=== PATIENT | male | born 1970 | race American Indian/Alaskan Native ===

== ENCOUNTER 2016-04-06 08:06 | Emergency (ER) | payer SELFPAY ==
[2016-04-06 08:55] LABS: Basophils % (Auto) 1.1 % (0.0-1.8); Eosinophils % (Auto) 3.9 % (0.0-4.3); Hematocrit 44.7 % (35.5-45.6); Hemoglobin 14.3 gm/dl (11.8-15.2); Mean Corpuscular HGB Conc 32 % (32-34); Mean Corpuscular Hemoglobin 27 pg (28-32); Mean Corpuscular Volume 85 fl (84-94); Platelet Count 235 K/mm3 (140-440); Red Blood Count 5.26 M/mm3 (3.65-5.03); Red Cell Distribution Width 13.1 % (13.2-15.2); White Blood Count 7.7 K/mm3 (4.5-11.0)
[2016-04-06 09:12] LABS: Anion Gap 20 mmol/L; Blood Urea Nitrogen 15 mg/dL (9-20); Calcium 9.2 mg/dL (8.4-10.2); Carbon Dioxide 22 mmol/L (22-30); Chloride 100.5 mmol/L (98-107); Glucose 147 mg/dL (75-100); Potassium 4.1 mmol/L (3.6-5.0); Sodium 138 mmol/L (137-145)
[2016-04-06] MEDS ORDERED: TORADOL ONE (13:08)
[2016-04-06] MEDS ORDERED: TORADOL IV ONE (13:09)
[2016-04-06] MEDS ORDERED: NACL ONE ×2 (13:39→13:43)
--- NOTE | 2016-04-06 13:50 | Emergency Department Report ---
ED Chest Pain HPI - General Chief Complaint: Chest Pain Stated Complaint: CHEST PAIN Time Seen by Provider: 04/06/16 13:02 Source: patient Mode of arrival: Ambulatory Limitations: No Limitations - History of Present Illness Initial Comments: 46 year male with a past medical history of lymphoma (currently in remission since September 2014 and previous (and obesity presents to the hospital complains of left-sided chest pain since last night. Pain is constant, rated 9/10 in intensity, sharp, worse palpation and deep inspiration. Mild shortness of breath noted this morning. Mild nausea reported. No reports of vomiting, calf tenderness, or recent travel. Denies family history of CAD, tobacco use, hypertension, or elevated cholesterol. Had a stress test performed here several years ago (not currently in Doctor kinetic record). Patient states he has been performing some heavy lifting and states he has been lifting his . PMD : none Severity scale (0 -10): 5 - Related Data Previous Rx's Medication Instructions Recorded Last Taken Type Ibuprofen [Motrin] 800 mg PO Q8HR PRN #30 tablet 04/06/16 Unknown Rx traMADol [Ultram 50 MG tab] 50 mg PO Q6HR PRN #20 tablet 04/06/16 Unknown Rx Allergies Allergy/AdvReac Type Severity Reaction Status Date / Time No Known Allergies Allergy Verified 04/06/16 08:20 MATEO score - Mateo Score Age > 65: (0) No Aspirin use within the Past 7 Days: (0) No 3 or more CAD Risk Factors: (0) No 2 or more Angina events in past 24 hrs: (0) No Known CAD with more than 50% Stenosis: (0) No Elevated Cardiac Markers: (0) No ST Deviation Greater than 0.5mm: (0) No MATEO Score: 0 ED Review of Systems ROS: Stated complaint: CHEST PAIN Other details as noted in HPI Comment: All other systems reviewed and negative Other: Constitutional: No fevers chills Eyes: No eye pain visual changes ENT: No ear pain or throat pain Neck: Denies pain Respiratory: Denies cough wheezing Cardiovascular: as per hpi GI: Denies abdominal pain, nausea, vomiting, diarrhea : Denies dysuria Musculoskeletal: Denies back pain Skin: Denies rash, lesions, erythema Neurologic: Denies headache, numbness, weakness Psychiatric: Denies suicidal ideation, hallucinations ED Past Medical Hx - Past Medical History Hx of Cancer: Yes (LYMPHOMA) Additional medical history: OBESITY - Surgical History Additional Surgical History: Port to Left Chest - Social History Smoking Status: Never Smoker Substance Use Type: None - Medications Home Medications: Home Medications Medication Instructions Recorded Confirmed Last Taken Type Ibuprofen [Motrin] 800 mg PO Q8HR PRN #30 tablet 04/06/16 Unknown Rx traMADol [Ultram 50 MG tab] 50 mg PO Q6HR PRN #20 tablet 04/06/16 Unknown Rx ED Physical Exam - General Limitations: No Limitations - Other Other exam information: General: No limitations, patient is alert in no acute distress Head exam: Atraumatic, normocephalic Eyes exam: Normal appearance, pupils equal reactive to light, extraocular movements intact ENT: Moist mucous membrane, normal oropharynx Neck exam: Normal inspection, full range of motion, no meningismus nontender Respiratory exam: Clear to auscultation bilateral, no wheezes, rales, crackles. Reproducible anterior left lower chest wall tenderness Cardiovascular: Normal rate and rhythm, normal heart sounds Abdomen: Soft, nondistended, and nontender, with normal bowel sounds, no rebound, or guarding Extremity: Full range of motion normal inspection no deformity, no calf tenderness or edema Back: Normal Inspection, full range of motion, no tenderness Neurologic: Alert, oriented x3, cranial nerves intact, no motor or sensory deficit Psychiatric: normal affect, normal mood Skin: Warm, dry, intact ED Course Vital Signs 04/06/16 04/06/16 04/06/16 08:16 11:45 13:16 Temperature 98.2 F 98.7 F Pulse Rate 82 65 Respiratory 18 18 16 Rate Blood Pressure 160/98 Blood Pressure 140/96 [Left] O2 Sat by Pulse 99 98 99 Oximetry 04/06/16 04/06/16 13:19 14:11 Temperature 98.4 F Pulse Rate 61 74 Respiratory 16 20 Rate Blood Pressure Blood Pressure 145/90 152/72 [Left] O2 Sat by Pulse 99 98 Oximetry - Reevaluation(s) Reevaluation #1: 04/06/16 14:47 Patient received Toradol for pain with some relief. He grimaces when I palpate his left chest wall therefore he was provided [place] for additional pain relief. Patient is not in any acute distress and pleasant in the ED. ED Medical Decision Making - Lab Data Result diagrams: 04/06/16 08:25 04/06/16 08:25 Lab Results 04/06/16 04/06/16 04/06/16 Range/Units 08:25 08:25 11:20 WBC 7.7 (4.5-11.0) K/mm3 RBC 5.26 H (3.65-5.03) M/mm3 Hgb 14.3 (11.8-15.2) gm/dl Hct 44.7 (35.5-45.6) % MCV 85 (84-94) fl MCH 27 L (28-32) pg MCHC 32 (32-34) % RDW 13.1 L (13.2-15.2) % Plt Count 235 (140-440) K/mm3 Lymph % (Auto) 29.2 (13.4-35.0) % [place] % (Auto) 10.7 H (0.0-7.3) % Eos % (Auto) 3.9 (0.0-4.3) % Baso % (Auto) 1.1 (0.0-1.8) % Lymph # 2.3 (1.2-5.4) K/mm3 [place] # 0.8 (0.0-0.8) K/mm3 Eos # 0.3 (0.0-0.4) K/mm3 Baso # 0.1 (0.0-0.1) K/mm3 Seg Neutrophils % 55.1 (40.0-70.0) % Seg Neutrophils # 4.2 (1.8-7.7) K/mm3 Sodium 138 (137-145) mmol/L Potassium 4.1 (3.6-5.0) mmol/L Chloride 100.5 (98-107) mmol/L Carbon Dioxide 22 (22-30) mmol/L Anion Gap 20 mmol/L BUN 15 (9-20) mg/dL Creatinine 1.0 (0.8-1.5) mg/dL Estimated GFR > 60 ml/min BUN/Creatinine Ratio 15.00 % Glucose 147 H (75-100) mg/dL Calcium 9.2 (8.4-10.2) mg/dL Troponin T < 0.010 < 0.010 (0.00-0.029) ng/mL - EKG Data -: EKG Interpreted by Me (sinus rate 72 nonspecific T-wave abnormalities) - EKG Data When compared to previous EKG there are: previous EKG unavailable - Radiology Data Radiology results: report reviewed ct angio chest: unremarkable, no PE - Medical Decision Making Pt has atypical reproducible chest wall pain. He does have a high risk for DVT/ PE given obesity and history of lymphoma but lacks DVT symptoms on exam, tachycardia, tachypnea, or hypoxia. CT angiogram was also negative. Patient does not have signs of ST elevation [place], chest pain is atypical, and has 2 negative sets of cardiac enzymes for constant sharp chest pain. Patient will be treated symptomatically for chest wall pain and encouraged follow-up. - Differential Diagnosis [place], PE, costochondritis, chest wall strain Critical Care Time: No Critical care attestation.: If time is entered above; I have spent that time in minutes in the direct care of this critically ill patient, excluding procedure time. ED Disposition Clinical Impression: Chest wall pain Disposition: DISCHARGED TO HOME OR SELFCARE Is pt being admited?: No Does the pt Need Aspirin: No Condition: Stable Instructions: Chest Pain (ED) Additional Instructions: Take the medication as needed. Return if symptoms worsen Prescriptions: Ibuprofen [Motrin] 800 mg PO Q8HR PRN #30 tablet PRN Reason: Pain traMADol [Ultram 50 MG tab] 50 mg PO Q6HR PRN #20 tablet PRN Reason: Pain Referrals: PRIMARY CARE, [Primary Care Provider] - 3-5 Days AARTI GARDINER MD [Staff Physician] - 3-5 Days Forms: Work/School Release Form(ED) Time of Disposition: 14:48
[2016-04-06 14:11] VITALS: BP 152/72
--- NOTE | 2016-04-06 14:13 | Cat Scan Report ---
CTA CHEST: History: Left chest pain. Technique: Helical CT following IV contrast. Pulmonary embolus protocol. Sagittal and coronal reformatted images. Rotational MIP images. Findings: Contrast bolus is satisfactory. No pulmonary embolus is identified. The thyroid gland, tracheobronchial tree, esophagus, heart, pericardium, mediastinal vessels, lung naranjo and bony thorax are unremarkable. Impression: No evidence for pulmonary embolus. Unremarkable CT chest with contrast.
[2016-04-06] MEDS ORDERED: NORCO 5/325 PO ONE (14:47)
== END 2016-04-06 16:05 | disposition home or self-care (01) ==
LOC: ED 08:06
DX: R07.89 Other chest pain (principal)
CPT/HCPCS: 36415; 71275; 80048; 84484; 85025; 93005; 93010; 96374; 99285; J1885; Q9967

== ENCOUNTER 2016-06-11 08:37 | Emergency (ER) | payer SELFPAY ==
[2016-06-11 09:45] VITALS: BP 132/84
--- NOTE | 2016-06-11 11:26 | Emergency Department Report ---
ED Lower Extremity HPI - General Chief Complaint: Extremity Injury, Lower Stated Complaint: LT ANKLE INJURY Time Seen by Provider: 06/11/16 11:22 Source: patient Mode of arrival: Ambulatory Limitations: Other - History of Present Illness Initial Comments: He states he stepped on uneven surface last night rolling his left ankle and feeling a pop. This is an isolated injury. MD Complaint: ankle injury, foot injury -: Sudden, days(s) (yesterday) Injury: Ankle: Left, Foot: Left Type of Injury: eversion Severity scale (0 -10): 8 Worsens With: weight bearing, movement, palpation - Related Data Previous Rx's Medication Instructions Recorded Last Taken Type Ibuprofen [Motrin] 800 mg PO Q8HR PRN #30 tablet 04/06/16 Unknown Rx traMADol [Ultram 50 MG tab] 50 mg PO Q6HR PRN #20 tablet 04/06/16 Unknown Rx Ibuprofen [Motrin] 800 mg PO Q8HR PRN #15 tablet 06/11/16 Unknown Rx traMADol [Ultram 50 MG tab] 50 mg PO Q4HR PRN #15 tablet 06/11/16 Unknown Rx Allergies Allergy/AdvReac Type Severity Reaction Status Date / Time No Known Allergies Allergy Verified 04/06/16 08:20 ED Review of Systems ROS: Stated complaint: LT ANKLE INJURY Other details as noted in HPI ED Past Medical Hx - Past Medical History Additional medical history: OBESITY - Surgical History Additional Surgical History: Port to Left Chest - Social History Smoking Status: Never Smoker Substance Use Type: None - Medications Home Medications: Home Medications Medication Instructions Recorded Confirmed Last Taken Type Ibuprofen [Motrin] 800 mg PO Q8HR PRN #30 tablet 04/06/16 Unknown Rx traMADol [Ultram 50 MG tab] 50 mg PO Q6HR PRN #20 tablet 04/06/16 Unknown Rx Ibuprofen [Motrin] 800 mg PO Q8HR PRN #15 tablet 06/11/16 Unknown Rx traMADol [Ultram 50 MG tab] 50 mg PO Q4HR PRN #15 tablet 06/11/16 Unknown Rx ED Physical Exam - General Limitations: Other General appearance: alert, in no apparent distress - Head Head exam: Present: atraumatic, normocephalic - Eye Eye exam: Present: normal appearance - ENT ENT exam: Present: mucous membranes moist - Neck Neck exam: Present: normal inspection - Respiratory Respiratory exam: Present: normal lung sounds bilaterally. Absent: respiratory distress - Cardiovascular Cardiovascular Exam: Present: regular rate. Absent: systolic murmur, diastolic murmur, rubs, gallop - GI/Abdominal GI/Abdominal exam: Present: soft, normal bowel sounds - Extremities Exam Extremities exam: Present: normal inspection - Expanded Lower Extremity Exam Left Ankle exam: Present: tenderness, swelling, ecchymosis Foot/Toe exam: Present: tenderness, swelling, laceration Neuro vascular tendon exam: Present: no vascular compromise. Absent: pulse deficit, abnormal cap refill, extremity cold to touch Gait: Positive: unable to bear weight - Back Exam Back exam: Present: normal inspection - Neurological Exam Neurological exam: Present: alert, oriented X3 - Psychiatric Psychiatric exam: Present: normal affect, normal mood - Skin Skin exam: Present: warm, dry, intact, normal color. Absent: rash ED Course Vital Signs 06/11/16 09:42 Temperature 98.4 F Pulse Rate 78 Respiratory 16 Rate Blood Pressure 132/84 O2 Sat by Pulse 100 Oximetry Critical care attestation.: If time is entered above; I have spent that time in minutes in the direct care of this critically ill patient, excluding procedure time. ED Disposition Clinical Impression: Ankle sprain Disposition: DISCHARGED TO HOME OR SELFCARE Is pt being admited?: No Condition: Good Instructions: Ankle Sprain (ED), Ankle Stirrup Splint (ED) Prescriptions: Ibuprofen [Motrin] 800 mg PO Q8HR PRN #15 tablet PRN Reason: Pain traMADol [Ultram 50 MG tab] 50 mg PO Q4HR PRN #15 tablet PRN Reason: Pain Referrals: PRIMARY MD SHARDA [Primary Care Provider] - 3-5 Days ALYSSA MUSE MD [Staff Physician] - 3-5 Days
[2016-06-11] MEDS ORDERED: NORCO 5/325 PO ONE (11:39)
--- NOTE | 2016-06-11 12:05 | XRay Report ---
LEFT ANKLE, 3 views: History: Injury. Bone mineralization is normal. No acute osseous abnormality or joint pathology is identified. There is moderate lateral soft tissue swelling. IMPRESSION: Soft tissue swelling.
--- NOTE | 2016-06-11 12:06 | XRay Report ---
LEFT FOOT, 3 views: History: Injury. The bony architecture is intact. Bony alignment is normal. No soft tissue abnormalities are seen. The joint spaces appear preserved. Mild hallux valgus deformity is noted. IMPRESSION: No acute osseous injury is detected. Hallux valgus deformity.
== END 2016-06-11 12:51 | disposition home or self-care (01) ==
LOC: ED 08:37
DX: S93.492A Sprain of other ligament of left ankle, initial encounter (principal); X50.1XXA Overexertion from prolonged static or awkward postures, initial encounter; X50.9XXA Other and unspecified overexertion or strenuous movements or postures, initial encounter; Y93.89 Activity, other specified; Y92.89 Other specified places as the place of occurrence of the external cause; Y99.8 Other external cause status

== ENCOUNTER 2021-06-24 14:51 | Emergency (ER) | payer OTHER ==
--- NOTE | 2021-06-24 15:19 | Emergency Department Report ---
ED Chest Pain HPI - General Chief Complaint: Chest Pain Stated Complaint: CHEST PAIN/RT SHOULDER Time Seen by Provider: 06/24/21 15:18 Source: patient Mode of arrival: Ambulatory Limitations: No Limitations - History of Present Illness Initial Comments: Patient is a 51-year-old male who presents with chest pain the chest pain is moderate he states it occurred for about a week he has pain when you press on his chest. Patient has no nausea no vomiting and no shortness of breath. Severity scale (0 -10): 9 - Related Data Previous Rx's Medication Instructions Recorded Last Taken Type Ibuprofen [Motrin] 800 mg PO Q8HR PRN #30 tablet 04/06/16 Unknown Rx traMADoL [Ultram 50 MG tab] 50 mg PO Q6HR PRN #20 tablet 04/06/16 Unknown Rx Ibuprofen [Motrin] 800 mg PO Q8HR PRN #15 tablet 06/11/16 Unknown Rx traMADoL [Ultram 50 MG tab] 50 mg PO Q4HR PRN #15 tablet 06/11/16 Unknown Rx Naproxen [Naprosyn] 500 mg PO BID PRN #20 tablet 12/27/17 Unknown Rx methocarbamoL [Robaxin-750] 750 mg PO QID PRN #20 tablet 12/27/17 Unknown Rx Allergies Allergy/AdvReac Type Severity Reaction Status Date / Time No Known Allergies Allergy Verified 04/06/16 08:20 Heart Score - HEART Score History: Slightly suspicious EKG: Normal Age: 45-65 Risk factors: 1-2 risk factors Troponin: < normal limit HEART Score: 2 - EKG Read Time Time EKG Completed: 15:05 EKG Read Time: 15:07 ED Review of Systems ROS: Stated complaint: CHEST PAIN/RT SHOULDER Other details as noted in HPI Constitutional: denies: chills, fever Eyes: denies: eye pain, eye discharge, vision change ENT: denies: ear pain, throat pain Respiratory: denies: cough, shortness of breath, wheezing Cardiovascular: chest pain. denies: palpitations Endocrine: no symptoms reported Gastrointestinal: denies: abdominal pain, nausea, diarrhea Genitourinary: denies: urgency, dysuria Musculoskeletal: denies: back pain, joint swelling, arthralgia Skin: denies: rash, lesions Neurological: denies: headache, weakness, paresthesias Psychiatric: denies: anxiety, depression Hematological/Lymphatic: denies: easy bleeding, easy bruising ED Past Medical Hx - Past Medical History Previous Medical History?: Yes Additional medical history: OBESITY, cancer - Surgical History Past Surgical History?: Yes Additional Surgical History: Port to Left Chest - Social History Smoking Status: Never Smoker Substance Use Type: None - Medications Home Medications: Home Medications Medication Instructions Recorded Confirmed Last Taken Type Ibuprofen [Motrin] 800 mg PO Q8HR PRN #30 tablet 04/06/16 Unknown Rx traMADoL [Ultram 50 MG tab] 50 mg PO Q6HR PRN #20 tablet 04/06/16 Unknown Rx Ibuprofen [Motrin] 800 mg PO Q8HR PRN #15 tablet 06/11/16 Unknown Rx traMADoL [Ultram 50 MG tab] 50 mg PO Q4HR PRN #15 tablet 06/11/16 Unknown Rx Naproxen [Naprosyn] 500 mg PO BID PRN #20 tablet 12/27/17 Unknown Rx methocarbamoL [Robaxin-750] 750 mg PO QID PRN #20 tablet 12/27/17 Unknown Rx ED Physical Exam - General Limitations: No Limitations General appearance: alert, in no apparent distress - Head Head exam: Present: atraumatic, normocephalic - Eye Eye exam: Present: normal appearance - ENT ENT exam: Present: mucous membranes moist - Neck Neck exam: Present: normal inspection - Respiratory Respiratory exam: Present: normal lung sounds bilaterally. Absent: respiratory distress - Cardiovascular Cardiovascular Exam: Present: regular rate, normal rhythm, other (chest wall tenderness). Absent: systolic murmur, diastolic murmur, rubs, gallop - GI/Abdominal GI/Abdominal exam: Present: soft, normal bowel sounds - Rectal Rectal exam: Present: deferred - Extremities Exam Extremities exam: Present: normal inspection - Back Exam Back exam: Present: normal inspection - Neurological Exam Neurological exam: Present: alert, oriented X3 - Psychiatric Psychiatric exam: Present: normal affect, normal mood - Skin Skin exam: Present: warm, dry, intact, normal color. Absent: rash ED Course Vital Signs 06/24/21 06/24/21 06/24/21 14:57 15:32 15:40 Temperature 97.8 F Pulse Rate 66 62 Respiratory 18 18 Rate Blood Pressure Blood Pressure 138/113 [Right] O2 Sat by Pulse 99 99 Oximetry 06/24/21 06/24/21 06/24/21 15:46 15:51 16:00 Temperature Pulse Rate 69 Respiratory Rate Blood Pressure 133/89 137/85 Blood Pressure [Right] O2 Sat by Pulse 97 97 Oximetry 06/24/21 06/24/21 06/24/21 16:02 16:30 17:00 Temperature Pulse Rate 62 65 Respiratory 20 21 Rate Blood Pressure 138/82 136/109 Blood Pressure 137/85 [Right] O2 Sat by Pulse 97 99 100 Oximetry 06/24/21 06/24/21 06/24/21 17:30 18:01 18:31 Temperature Pulse Rate 59 L 64 62 Respiratory 19 17 14 Rate Blood Pressure 149/94 129/86 132/81 Blood Pressure [Right] O2 Sat by Pulse 96 98 98 Oximetry 06/24/21 06/24/21 19:01 19:31 Temperature Pulse Rate 78 59 L Respiratory 20 13 Rate Blood Pressure 130/81 150/101 Blood Pressure [Right] O2 Sat by Pulse 96 100 Oximetry - Reevaluation(s) Reevaluation #1: 06/24/21 20:02 Patient states pain is better he stated he will states that he has some sharp pain intermittently. Discussed admission with patient however patient walked out of the hospital saying he wants to leave AGAINST MEDICAL ADVICE MATEO score - Mateo Score Age > 65: (0) No Aspirin use within the Past 7 Days: (0) No 3 or more CAD Risk Factors: (0) No 2 or more Angina events in past 24 hrs: (0) No Known CAD with more than 50% Stenosis: (0) No Elevated Cardiac Markers: (0) No ST Deviation Greater than 0.5mm: (0) No MATEO Score: 0 ED Medical Decision Making - Lab Data Result diagrams: 06/24/21 16:48 06/24/21 16:48 Lab Results 06/24/21 06/24/21 06/24/21 Range/Units 15:29 16:48 16:48 WBC 7.3 (4.5-11.0) K/mm3 RBC 4.88 (3.65-5.03) M/mm3 Hgb 12.7 (11.8-15.2) gm/dl Hct 40.4 (35.5-45.6) % MCV 83 L (84-94) fl MCH 26 L (28-32) pg MCHC 32 (32-34) % RDW 13.0 L (13.2-15.2) % Plt Count 198 (140-440) K/mm3 Lymph % (Auto) 43.1 H (13.4-35.0) % [place] % (Auto) 10.6 H (0.0-7.3) % Eos % (Auto) 2.7 (0.0-4.3) % Baso % (Auto) 1.2 (0.0-1.8) % Lymph # (Auto) 3.1 (1.2-5.4) K/mm3 [place] # (Auto) 0.8 (0.0-0.8) K/mm3 Eos # (Auto) 0.2 (0.0-0.4) K/mm3 Baso # (Auto) 0.1 (0.0-0.1) K/mm3 Seg Neutrophils % 42.4 (40.0-70.0) % Seg Neutrophils # 3.1 (1.8-7.7) K/mm3 Sodium 139 (137-145) mmol/L Potassium 3.9 (3.6-5.0) mmol/L Chloride 103.2 (98-107) mmol/L Carbon Dioxide 22 (22-30) mmol/L Anion Gap 18 mmol/L BUN 10 (9-20) mg/dL Creatinine 0.9 (0.8-1.3) mg/dL Estimated GFR > 60 ml/min BUN/Creatinine Ratio 11 % Glucose 202 H (75-100) mg/dL Calcium 8.8 (8.4-10.2) mg/dL Troponin T < 0.010 (0.00-0.029) ng/mL - EKG Data -: EKG Interpreted by Me - EKG Data 06/24/21 18:01 EKG time 1507 rate 67 sinus rhythm low voltage in the precordial wires impression borderline EKG - Radiology Data Radiology results: report reviewed Chest x-ray: Shows no acute cardiopulmonary disease - Medical Decision Making Chief medical diagnosis: Costochondritis Differential medical diagnosis non-STEMI, arrhythmia I will get 2 sets of troponin IM pain medicine blood work and I will reevaluate the patient and I will get chest x-ray as well. Critical care attestation.: If time is entered above; I have spent that time in minutes in the direct care of this critically ill patient, excluding procedure time. ED Disposition Clinical Impression: Pleuritic chest pain Disposition: 07 LEFT AGAINST MEDICAL ADVICE Is pt being admited?: No Does the pt Need Aspirin: No Condition: Stable Instructions: Nonspecific Chest Pain, Adult Referrals: PRIMARY CARE, [Primary Care Provider] - 3-5 Days Forms: AMA Form
[2021-06-24] MEDS ORDERED: KETOROLAC 30 MG/1 ML INJ IV ONE (15:52)
[2021-06-24 17:06] LABS: Basophils # (Auto) 0.1 K/mm3 (0.0-0.1); Basophils % (Auto) 1.2 % (0.0-1.8); Eosinophils # (Auto) 0.2 K/mm3 (0.0-0.4); Eosinophils % (Auto) 2.7 % (0.0-4.3); Hematocrit 40.4 % (35.5-45.6); Hemoglobin 12.7 gm/dl (11.8-15.2); Lymphocytes # (Auto) 3.1 K/mm3 (1.2-5.4); Lymphocytes % (Auto) 43.1 % (13.4-35.0); Mean Corpuscular HGB Conc 32 % (32-34); Mean Corpuscular Volume 83 fl (84-94); Monocytes # (Auto) 0.8 K/mm3 (0.0-0.8); Monocytes % (Auto) 10.6 % (0.0-7.3); Platelet Count 198 K/mm3 (140-440); Red Blood Count 4.88 M/mm3 (3.65-5.03)
[2021-06-24 17:26] LABS: BUN/Creatinine Ratio 11; Blood Urea Nitrogen 10 mg/dL (9-20); Calcium 8.8 mg/dL (8.4-10.2); Hemolysis Index 21
[2021-06-24] MEDS ORDERED: oxyCODONE /ACETAMINOPHEN 5-325MG TAB PO ONE (19:11)
--- NOTE | 2021-06-24 20:40 | Cat Scan Report ---
CT angio chest INDICATION / CLINICAL INFORMATION: chest pain. TECHNIQUE: Axial CT images were obtained through the chest after injection of 100 cc of Omnipaque 350 IV contrast. 3 plane MIP and/or 3D reconstructions were produced. All CT scans at this location are performed using CT dose reduction for ALARA by means of automated exposure control. COMPARISON: None available. FINDINGS: PULMONARY ARTERIES: No central or segmental pulmonary embolus. THORACIC AORTA: No significant abnormality. HEART: No significant abnormality. CORONARY ARTERY CALCIFICATION: No significant calcification. LYMPHADENOPATHY: No significant thoracic lymphadenopathy. LUNGS/PLEURA: No acute airspace disease. No pleural effusion or pneumothorax. OTHER FINDINGS: There is asymmetric skin thickening of the right chest wall with mild inflammatory st randing of the soft tissues. No organized collection. No soft tissue gas. UPPER ABDOMEN: Hepatic steatosis. Nonspecific mildly enlarged upper abdominal lymph nodes, to include gastrohepatic lymph node measuring 1.4 cm SKELETAL SYSTEM: No acute osseous findings. IMPRESSION: 1. No evidence of pulmonary embolism. 2. Asymmetric skin thickening and subcutaneous inflammatory stranding of the right chest wall. This i s nonspecific but may reflect cellulitis in the appropriate clinical setting. No organized collection . 3. Otherwise, no acute findings in the chest. No acute interstitial or airspace disease. 4. Nonspecific mildly enlarged upper abdominal lymph nodes. Continued follow-up is recommend. Signer Name: Edu Harper MD Signed: 06/24/2021 8:35 PM Workstation Name: [id number]
--- NOTE | 2021-06-24 20:55 | XRay Report ---
XR chest routine 2V INDICATION / CLINICAL INFORMATION: chest pain; right shoulder pain w/o injury. COMPARISON: 12/27/2017 FINDINGS: SUPPORT DEVICES: None. HEART /PULMONARY VASCULATURE: No significant abnormality. LUNGS / PLEURA: No significant pulmonary or pleural abnormality. No pneumothorax. ADDITIONAL FINDINGS: No significant additional findings. IMPRESSION: 1. No acute findings. Signer Name: Edu Harper MD Signed: 06/24/2021 8:51 PM Workstation Name: [id number]
--- NOTE | 2021-06-24 21:00 | XRay Report ---
. Right shoulder, 3 views HISTORY: Shoulder pain COMPARISON: None FINDINGS: No acute fracture or malalignment. 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 No focal soft tissue abnormality. Visualized lungs are clear. IMPRESSION: 1. No acute findings Signer Name: Edu Harper MD Signed: 06/24/2021 8:55 PM Workstation Name: [id number]
[2021-06-24 21:20] VITALS: BP 155/101
--- NOTE | 2021-06-26 20:02 | Electrocardiograph Report ---
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
--- NOTE | 2021-06-26 20:07 | Electrocardiograph Report ---
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
== END 2021-06-24 21:18 | disposition home or self-care (01) ==
LOC: ED 14:51
DX: R07.89 Other chest pain (principal)
CPT/HCPCS: 36415; 71046; 71275; 73030; 80048; 84484; 85025; 93005; 96374; 99284; J1885; Q9967